=== PATIENT | female | born 1975 | race Caucasian/White ===

== ENCOUNTER → 2016-09-05 | Outpatient (CLI) | payer BC | LOC: BHSO 10:48 | DX: F33.1 Major depressive disorder, recurrent, moderate (principal) | CPT/HCPCS: 90791-AI ==

== ENCOUNTER → 2016-11-08 | Outpatient (CLI) | payer BC, MEDICAID | LOC: BHSO 15:36 | DX: F41.1 Generalized anxiety disorder (principal) ==

== ENCOUNTER → 2017-03-08 | Outpatient (CLI) | payer BC, MEDICAID | LOC: BHSO 14:22 | DX: F41.1 Generalized anxiety disorder (principal) ==

== ENCOUNTER → 2017-05-16 | Outpatient (CLI) | payer BC, MEDICAID | LOC: BHSO 13:16 | DX: F41.1 Generalized anxiety disorder (principal) ==

== ENCOUNTER → 2017-06-19 | Outpatient (CLI) | payer BC, MEDICAID | LOC: BHSO 14:38 | DX: F41.1 Generalized anxiety disorder (principal) ==